=== PATIENT | female | born 1960 | race Hispanic/Latino ===

== ENCOUNTER 2020-08-06 23:18 | Emergency (ER) | payer SELFPAY ==
[~2020-08-06] VITALS: Ht 160 cm; Wt 72.6 kg
[2020-08-06] MEDS ORDERED: MORPHINE SULFATE INJ 4 MG/ML INJ 1ML IV STA (23:43)
== END 2020-08-07 01:19 | disposition home or self-care (01) ==
LOC: ER 23:31
DX: M79.661 Pain in right lower leg (principal); W22.8XXA Striking against or struck by other objects, initial encounter; Z85.528 Personal history of other malignant neoplasm of kidney
CPT/HCPCS: 73590; 99283; J2270

== ENCOUNTER 2020-09-12 10:11 | Emergency (ER) | payer SELFPAY ==
[~2020-09-12] VITALS: Ht 160 cm; Wt 74.8 kg
[2020-09-12 11:15] VITALS: BP 120/81
== END 2020-09-12 11:16 | disposition home or self-care (01) ==
LOC: ER 10:17
DX: R19.7 Diarrhea, unspecified (principal); R11.0 Nausea; Z85.528 Personal history of other malignant neoplasm of kidney
CPT/HCPCS: 99281

== ENCOUNTER 2020-09-20 13:18 | Emergency (ER) | payer SELFPAY ==
[~2020-09-20] VITALS: Ht 160 cm; Wt 74.8 kg
[2020-09-20 16:28] LABS: CLARITY,URINE CLEAR (CLEAR); COLOR,URINE YELLOW (YELLOW); EPITHELIAL CELLS,URINE RARE /LPF; KETONES,URINE NEGATIVE (NEGATIVE); LEUKOCYTE ESTERASE ,URINE NEGATIVE (NEGATIVE); MUCUS,URINE RARE (RARE); NITRITE,URINE NEGATIVE (NEGATIVE); PROTEIN,URINE DIPSTICK NEGATIVE (NEGATIVE); RBC,URINE 0-5 /HPF (0-5); URINE UROBILINOGEN 0.2 mg/dL (0.2 - 1); WBC,URINE (MAN) 0-5 /HPF (0-5)
[2020-09-20] MEDS ORDERED: ASPIRIN 81 MG CHEW TAB PO ONE (16:45)
[2020-09-20] MEDS ORDERED: HYDROCODONE/APAP 10MG-325MG TAB PO NR (17:45)
[2020-09-20 18:20] LABS: BASOPHILS # (AUTO) 0.1 (0.0-0.1); BASOPHILS % 0.7 % (0.0-1.0); EOSINOPHILS # (AUTO) 0.2 (0.0-0.4); EOSINOPHILS % 3.2 % (0.0-6.0); HEMATOCRIT 42.5 % (34.2-44.1); HEMOGLOBIN 14.5 g/dL (12.0-16.0); LYMPHOCYTES # (AUTO) 3.1 (1.0-3.2); MEAN CORPUSCULAR HEMOGLOBIN 30.1 pg (28-32); MEAN CORPUSCULAR HGB CONC 34.1 g/dL (31-35); MEAN CORPUSCULAR VOLUME 88.2 fL (81-99); MONOCYTES # (AUTO) 0.5 (0.2-0.8); MONOCYTES % 6.3 % (4.4-11.3); NEUTROPHILS # (AUTO) 3.6 (2.1-6.9); NEUTROPHILS % 48.3 % (38.7-80.0); PLATELET COUNT 269 x10e3/uL (140-360); RED BLOOD COUNT 4.82 x10e6/uL (3.6-5.1); RED CELL DISTRIBUTION WIDTH 12.1 % (11.7-14.4)
[2020-09-20 18:48] LABS: ALANINE AMINOTRANSFERASE 45 IU/L (0-55); ALBUMIN/GLOBULIN RATIO 1.1 (0.8-2.0); ALKALINE PHOSPHATASE 131 IU/L (40-150); ANION GAP 14.7 mmol/L (8-16); BLOOD UREA NITROGEN 11 mg/dL (7-26); BUN/CREATININE RATIO 14 (6-25); CALCIUM 8.6 mg/dL (8.4-10.2); CARBON DIOXIDE 24 mmol/L (22-29); CHLORIDE 105 mmol/L (98-107); CREATINE KINASE 133 IU/L (29-168); CREATININE, SERUM 0.81 mg/dL (0.57-1.11); EST GLOMERULAR FILTRATION RATE > 60 ML/MIN (60-); GLUCOSE 99 mg/dL (74-118); POTASSIUM 3.7 mmol/L (3.5-5.1); SODIUM 140 mmol/L (136-145)
== END 2020-09-20 19:48 | disposition home or self-care (01) ==
LOC: ER 15:09
DX: M54.5 Low back pain (principal); Z85.528 Personal history of other malignant neoplasm of kidney
CPT/HCPCS: 36415; 74176; 80053; 81001; 82550; 82553; 84484; 85025; 99283

== ENCOUNTER 2020-12-09 22:45 | Emergency (ER) | payer SELFPAY ==
[~2020-12-09] VITALS: Ht 160 cm; Wt 79.8 kg
[2020-12-10] MEDS ORDERED: ACETAMINOPHEN 325 MG TAB PO ONE
[2020-12-10] MEDS ORDERED: ACETAMINOPHEN 325 MG TAB ONE (00:01)
[2020-12-10 00:22] VITALS: BP 148/90
== END 2020-12-10 00:20 | disposition home or self-care (01) ==
LOC: ER 23:41
DX: M25.562 Pain in left knee (principal); M71.562 Other bursitis, not elsewhere classified, left knee; Z85.528 Personal history of other malignant neoplasm of kidney
CPT/HCPCS: 99283

== ENCOUNTER 2021-05-12 17:25 | Emergency (ER) | payer SELFPAY ==
[~2021-05-12] VITALS: Ht 160 cm; Wt 83.9 kg
[2021-05-12 18:20] LABS: STREPTOCOCCUS GRP A ANTIGEN NEGATIVE (NEGATIVE)
[2021-05-12 18:34] LABS: INFLUENZAE A&B ANTIGEN (RAPID) NEGATIVE (NEGATIVE)
== END 2021-05-12 19:12 | disposition home or self-care (01) ==
LOC: ER 17:49
DX: J30.9 Allergic rhinitis, unspecified (principal); Z20.822 Contact with and (suspected) exposure to COVID-19; Z85.528 Personal history of other malignant neoplasm of kidney
CPT/HCPCS: 83518; 87400; 99282; U0002

== ENCOUNTER 2021-10-08 09:24 | Emergency (ER) | payer SELFPAY ==
[~2021-10-08] VITALS: Ht 160 cm; Wt 83.9 kg
[2021-10-08 10:01] LABS: CLARITY,URINE HAZY (CLEAR); COLOR,URINE YELLOW (YELLOW); KETONES,URINE NEGATIVE (NEGATIVE); LEUKOCYTE ESTERASE ,URINE SMALL (NEGATIVE); NITRITE,URINE POSITIVE (NEGATIVE); PROTEIN,URINE DIPSTICK NEGATIVE (NEGATIVE); URINE UROBILINOGEN 0.2 mg/dL (0.2 - 1)
[2021-10-08 10:08] LABS: BACTERIA,URINE MANY /HPF; RBC,URINE 0-5 /HPF (0-5)
== END 2021-10-08 10:23 | disposition home or self-care (01) ==
LOC: ER 09:29
DX: R30.0 Dysuria (principal); N39.0 Urinary tract infection, site not specified; N81.10 Cystocele, unspecified; Z85.528 Personal history of other malignant neoplasm of kidney
CPT/HCPCS: 81001; 87086; 87186; 99282

== ENCOUNTER 2021-11-27 17:06 | Emergency (ER) | payer SELFPAY ==
[~2021-11-27] VITALS: Ht 160 cm; Wt 83.9 kg
[2021-11-27] MEDS ORDERED: DEXAMETHASONE SOD PHOS 10 MG/1 ML VIAL IM ONE (17:30)
[2021-11-27] MEDS ORDERED: PREDNISONE50 MG PO (17:31)
[2021-11-27] MEDS ORDERED: FLONASE ALLERG9.9 ML INH (17:31)
[2021-11-27] MEDS ORDERED: PROVENTIL HFA6.7 GM INH (17:31)
[2021-11-27] MEDS ORDERED: BENZONATATE200 MG PO (17:31)
[2021-11-27] MEDS ORDERED: DEXAMETHASONE SOD PHOS 10 MG/1 ML VIAL ONE (17:41)
[2021-11-29] MEDS ORDERED: CYCLOPENTOLATE HCL 1% OPTH SOLN 2ML BTL ONE (14:11)
== END 2021-11-27 17:36 | disposition home or self-care (01) ==
LOC: ER 17:14
DX: R05.9 Cough, unspecified (principal); J06.9 Acute upper respiratory infection, unspecified; J32.9 Chronic sinusitis, unspecified; Z85.528 Personal history of other malignant neoplasm of kidney
CPT/HCPCS: 99282; J1100

== ENCOUNTER 2022-02-07 14:12 | Emergency (ER) | payer OTHER ==
[~2022-02-07] VITALS: Ht 160 cm; Wt 83.9 kg
[~2022-02-07 14:12] MED LIST: BENZONATATE200 MG PO; FLONASE ALLERG9.9 ML INH; PREDNISONE50 MG PO; PROVENTIL HFA6.7 GM INH
[2022-02-07] MEDS ORDERED: IBUPROFEN 600 MG TAB PO STA (14:23)
[2022-02-07] MEDS ORDERED: IBUPROFEN600 MG PO (15:46)
== END 2022-02-07 14:52 | disposition home or self-care (01) ==
LOC: ER 14:17
DX: M25.531 Pain in right wrist (principal); S60.211A Contusion of right wrist, initial encounter; W22.09XA Striking against other stationary object, initial encounter; Y92.89 Other specified places as the place of occurrence of the external cause; Z85.528 Personal history of other malignant neoplasm of kidney
CPT/HCPCS: 99283

== ENCOUNTER 2022-05-11 21:06 | Emergency (ER) | payer OTHER ==
[~2022-05-11] VITALS: Ht 160 cm; Wt 83.9 kg
[~2022-05-11 21:06] MED LIST changes: +IBUPROFEN600 MG PO
[2022-05-11] MEDS ORDERED: HYDROCODONE/APAP 7.5MG-325MG 1 EA TAB PO ONE (21:15)
[2022-05-11] MEDS ORDERED: NAPROSYN500 MG PO (22:08)
== END 2022-05-11 22:20 | disposition home or self-care (01) ==
LOC: ER 21:09
DX: S93.401A Sprain of unspecified ligament of right ankle, initial encounter (principal); W01.0XXA Fall on same level from slipping, tripping and stumbling without subsequent striking against object, initial encounter; Y93.01 Activity, walking, marching and hiking; Y92.89 Other specified places as the place of occurrence of the external cause; Z85.528 Personal history of other malignant neoplasm of kidney; Z88.8 Allergy status to other drugs, medicaments and biological substances; Z91.041 Radiographic dye allergy status; Z88.0 Allergy status to penicillin; Z91.013 Allergy to seafood
CPT/HCPCS: 99283

== ENCOUNTER 2022-06-07 14:10 | Emergency (ER) | payer SELFPAY ==
[~2022-06-07] VITALS: Ht 160 cm; Wt 83.9 kg
[~2022-06-07 14:10] MED LIST changes: +NAPROSYN500 MG PO
== END 2022-06-07 16:28 | disposition home or self-care (01) ==
LOC: ER 14:16
DX: J06.9 Acute upper respiratory infection, unspecified (principal); Z88.8 Allergy status to other drugs, medicaments and biological substances; Z91.041 Radiographic dye allergy status; Z91.013 Allergy to seafood; Z85.528 Personal history of other malignant neoplasm of kidney
CPT/HCPCS: 0223U; 36415; 71046; 87400; 99283

== ENCOUNTER 2022-11-04 10:31 | Emergency (ER) | payer BC, OTHER ==
[~2022-11-04] VITALS: Ht 160 cm; Wt 83.9 kg
[2022-11-04 10:52] LABS: BASOPHILS # (AUTO) 0.1 (0.0-0.1); BASOPHILS % 0.9 % (0.0-1.0); EOSINOPHILS # (AUTO) 0.1 (0.0-0.4); EOSINOPHILS % 1.1 % (0.0-6.0); HEMATOCRIT 41.6 % (34.2-44.1); HEMOGLOBIN 13.6 g/dL (12.0-16.0); LYMPHOCYTES # (AUTO) 1.8 (1.0-3.2); LYMPHOCYTES % 34.5 % (18.0-39.1); MEAN CORPUSCULAR HEMOGLOBIN 29.8 pg (28-32); MEAN CORPUSCULAR HGB CONC 32.7 g/dL (31-35); MEAN CORPUSCULAR VOLUME 91.2 fL (81-99); MONOCYTES # (AUTO) 0.4 (0.2-0.8); MONOCYTES % 7.2 % (4.4-11.3); NEUTROPHILS % 55.7 % (38.7-80.0); PLATELET COUNT 259 x10e3/uL (140-360); RED BLOOD COUNT 4.56 x10e6/uL (3.6-5.1); RED CELL DISTRIBUTION WIDTH 12.2 % (11.7-14.4)
[2022-11-04 11:08] LABS: ANION GAP 13.8 mmol/L (8-16); BLOOD UREA NITROGEN 13 mg/dL (7-26); BUN/CREATININE RATIO 16 (6-25); CALCIUM 8.7 mg/dL (8.4-10.2); CARBON DIOXIDE 21 mmol/L (22-29); CHLORIDE 110 mmol/L (98-107); GLUCOSE 153 mg/dL (74-118); POTASSIUM 3.8 mmol/L (3.5-5.1); SODIUM 141 mmol/L (136-145)
[2022-11-04 11:12] LABS: CLARITY,URINE CLEAR (CLEAR); COLOR,URINE YELLOW (YELLOW); KETONES,URINE NEGATIVE (NEGATIVE); LEUKOCYTE ESTERASE ,URINE NEGATIVE (NEGATIVE); NITRITE,URINE NEGATIVE (NEGATIVE); PROTEIN,URINE DIPSTICK NEGATIVE (NEGATIVE); URINE UROBILINOGEN 0.2 mg/dL (0.2 - 1)
[2022-11-04 11:23] LABS: BACTERIA,URINE MODERATE /HPF; EPITHELIAL CELLS,URINE MODERATE /LPF; RBC,URINE 0-5 /HPF (0-5)
[2022-11-04 12:01] LABS: CREATINE KINASE MB 3.3 ng/mL (0-5.0)
[2022-11-04] MEDS ORDERED: OMEPRAZOLE40 MG PO (12:56)
== END 2022-11-04 13:08 | disposition home or self-care (01) ==
LOC: ER 10:36
DX: R06.02 Shortness of breath (principal); R07.9 Chest pain, unspecified; J44.9 Chronic obstructive pulmonary disease, unspecified; K21.9 Gastro-esophageal reflux disease without esophagitis; Z20.822 Contact with and (suspected) exposure to COVID-19; Z85.528 Personal history of other malignant neoplasm of kidney
CPT/HCPCS: 0223U; 36415; 71045; 80048; 81001; 81025; 82550; 82553; 83880; 84484; 85025; 93005; 94760; 99284

== ENCOUNTER 2023-11-24 16:47 | Emergency (ER) | payer OTHER ==
[~2023-11-24] VITALS: Ht 160 cm; Wt 82.1 kg
[~2023-11-24 16:47] MED LIST changes: +OMEPRAZOLE40 MG PO; +PAXLOVID 300-11 EAC1 PO
[2023-11-24] MEDS: KETOROLAC TROMETHAMINE 60 MG/2 ML VIAL IM ONE (17:18)
[2023-11-24] MEDS ORDERED: KETOROLAC TROMETHAMINE 30 MG/ML VIAL ONE (17:19)
[2023-11-24 19:00] VITALS: O2SAT 100
[2023-11-25] MEDS ORDERED: KETOROLAC TROMETHAMINE 30 MG/ML VIAL ONE (19:42)
== END 2023-11-24 19:13 | disposition home or self-care (01) ==
LOC: ER 16:50
DX: S60.221A Contusion of right hand, initial encounter (principal); W20.8XXA Other cause of strike by thrown, projected or falling object, initial encounter; Y92.89 Other specified places as the place of occurrence of the external cause; M77.8 Other enthesopathies, not elsewhere classified; J44.9 Chronic obstructive pulmonary disease, unspecified; Z85.528 Personal history of other malignant neoplasm of kidney
CPT/HCPCS: 73130; 99283; J1885

== ENCOUNTER 2024-03-15 16:59 | Emergency (ER) | payer OTHER ==
[~2024-03-15] VITALS: Ht 160 cm; Wt 79.4 kg
[~2024-03-15 16:59] MED LIST changes: +METHOCARBAMOL750 MG PO; +NAPROXEN250 MG PO; +PREDNISONE20 MG PO
[2024-03-15 17:16] VITALS: PULSE 58; RESP 14; TEMP 98.4; O2SAT 99
== END 2024-03-15 18:54 | disposition home or self-care (01) ==
LOC: ER 17:16
DX: M79.604 Pain in right leg (principal); J44.9 Chronic obstructive pulmonary disease, unspecified; Z85.528 Personal history of other malignant neoplasm of kidney
CPT/HCPCS: 99283

== ENCOUNTER 2024-10-15 10:04 | Emergency (ER) | payer OTHER ==
[~2024-10-15] VITALS: Ht 160 cm; Wt 79.4 kg
[2024-10-15 10:09] VITALS: PULSE 64; RESP 17; TEMP 97.9
[2024-10-15] MEDS ORDERED: NAPROSYN500 MG PO (12:32)
[2024-10-15] MEDS ORDERED: METHOCARBAMOL500 MG PO (12:32)
[2024-10-15 13:02] VITALS: BP 139/87; PULSE 84; RESP 18; TEMP 98.3; O2SAT 98
== END 2024-10-15 13:10 | disposition home or self-care (01) ==
LOC: ER 10:19
DX: M79.632 Pain in left forearm (principal); M79.605 Pain in left leg; W01.0XXA Fall on same level from slipping, tripping and stumbling without subsequent striking against object, initial encounter; Y93.01 Activity, walking, marching and hiking; Y92.89 Other specified places as the place of occurrence of the external cause; J44.9 Chronic obstructive pulmonary disease, unspecified; Z85.528 Personal history of other malignant neoplasm of kidney
CPT/HCPCS: 99283

== ENCOUNTER 2024-11-17 18:22 | Emergency (ER) | payer OTHER ==
[~2024-11-17] VITALS: Ht 160 cm; Wt 87.5 kg
[~2024-11-17 18:22] MED LIST changes: +METHOCARBAMOL500 MG PO
[2024-11-17 18:34] VITALS: PULSE 75; RESP 16; TEMP 97.9
[2024-11-17] MEDS ORDERED: TRAMADOL HCL 50 MG TAB ONE (18:45)
[2024-11-17] MEDS: TRAMADOL HCL 50 MG TAB PO STA (18:49)
[2024-11-17 20:15] VITALS: BP 169/87; PULSE 70; RESP 17; TEMP 98.2; O2SAT 97
== END 2024-11-17 20:13 | disposition home or self-care (01) ==
LOC: ER 18:24
DX: M79.662 Pain in left lower leg (principal); J44.9 Chronic obstructive pulmonary disease, unspecified; Z87.442 Personal history of urinary calculi
CPT/HCPCS: 93970; 99283

== ENCOUNTER 2025-02-18 16:57 | Emergency (ER) | payer OTHER ==
[~2025-02-18] VITALS: Ht 160 cm; Wt 87.5 kg
[2025-02-18 17:22] VITALS: TEMP 98.3
[2025-02-18] MEDS: KETOROLAC TROMETHAMINE 30 MG/ML VIAL IV STA (20:41)
[2025-02-18 20:45] LABS: BASOPHILS % 0.4 % (0.0-1.0); EOSINOPHILS % 2.1 % (0.0-6.0); LYMPHOCYTES % 24.7 % (18.0-39.1); MONOCYTES % 6.7 % (4.4-11.3); NEUTROPHILS % 65.0 % (38.7-80.0); RED CELL DISTRIBUTION WIDTH 12.5 % (11.7-14.4)
[2025-02-18 21:00] LABS: LEUKOCYTE ESTERASE ,URINE TRACE (NEGATIVE); PROTEIN,URINE DIPSTICK NEGATIVE (NEGATIVE); URINE UROBILINOGEN 0.2 mg/dL (0.2 - 1)
[2025-02-18 21:09] LABS: EST GLOMERULAR FILTRATION RATE 75.0 ML/MIN (>=60)
[2025-02-18 21:16] LABS: EPITHELIAL CELLS,URINE MODERATE /LPF
[2025-02-18 22:54] VITALS: PULSE 67; RESP 19
[2025-02-18] MEDS ORDERED: CEFDINIR300 MG PO (23:23)
[2025-02-18] MEDS ORDERED: CYCLOBENZAPRINE5 MG PO (23:23)
[2025-02-18 23:33] VITALS: BP 149/87; PULSE 60; RESP 15; TEMP 98.1; O2SAT 98
== END 2025-02-18 23:38 | disposition home or self-care (01) ==
LOC: ER 20:28
DX: R10.31 Right lower quadrant pain (principal); S30.1XXA Contusion of abdominal wall, initial encounter; M25.511 Pain in right shoulder; M25.562 Pain in left knee; W01.198A Fall on same level from slipping, tripping and stumbling with subsequent striking against other object, initial encounter; Y93.01 Activity, walking, marching and hiking; Y92.89 Other specified places as the place of occurrence of the external cause; N39.0 Urinary tract infection, site not specified; J44.9 Chronic obstructive pulmonary disease, unspecified; Z85.528 Personal history of other malignant neoplasm of kidney
CPT/HCPCS: 36415; 73030; 73562; 74176; 80053; 81001; 85025; 99284; J1885